=== PATIENT | female | born 2000 | race Two or more races ===

== ENCOUNTER 2025-05-23 17:54 | Emergency (ER) | payer BC ==
[~2025-05-23] VITALS: Ht 167.6 cm; Wt 61.2 kg
[2025-05-23] MEDS ORDERED: CORTISPORIN EAR10 M1 OTIC (19:05)
[2025-05-23] MEDS ORDERED: PEPCID AC20 MG PO (19:05)
[2025-05-23] MEDS ORDERED: CIPRO500 MG PO (19:05)
[2025-05-23] MEDS ORDERED: PEPCID AC20 MG (20:02)
== END 2025-05-23 21:46 | disposition home or self-care (01) ==
LOC: ER 18:01
DX: J02.9 Acute pharyngitis, unspecified (principal); H66.90 Otitis media, unspecified, unspecified ear; Z88.1 Allergy status to other antibiotic agents